=== PATIENT | male | born 1965 | race Two or more races ===

== ENCOUNTER 2025-01-31 23:38 | Emergency (ER) | payer MEDICARE, MEDICAID, SELFPAY ==
[2025-01-31 23:50] VITALS: BP 107/75; PULSE 94; RESP 19; TEMP 36.8; O2SAT 96
[2025-01-31 23:51] VITALS: BMI 25.0
--- NOTE | 2025-02-01 00:18 | XR_ITS ---
Examination: Hand, right 3 views Technique: Hand AP, oblique, lateral 3 views Date and time of exam: February 01, 2025, 0022 hours INDICATIONS: Shut car door on hand today with injury of the hand especially first digit pain FINDINGS: No acute fracture No dislocation No foreign body IMPRESSION: No acute fracture
[2025-02-01] MEDS: HYDROcodone/APAP 5/325 TABLET 1 TAB PO (01:45)
--- NOTE | 2025-02-01 03:09 | EDNOTE_ITS ---
Upper Extremity Injury RME/HPI General Chief Complaint: Hand/Wrist Problems Stated Complaint: RIGHT THUMB INJURY Time Seen by Provider: 01/31/25 23:41 Arrival date/time: 01/31/25 23:38 This is a case of 59-year-old male with no medical history came in in the emergency room due to a tongue injury history of present illness started 1 hour prior to arrival in the emergency room patient right thumb was caught by a car door sustaining a pain swelling and subungual hematoma on the right thumb patient tetanus shot is up-to-date no other injury noted Limitations: no limitations Related Data Previous Rx's ?Medication ?Instructions ?Recorded baclofen 20 mg tablet 20 mg PO QDAY #20 tabs 04/16 cephalexin 500 mg capsule 500 mg PO Q8H #30 caps 02/01 hydrocodone 5 mg-acetaminophen 325 1 tab PO Q6H PRN pa in #12 tabs 02/01/25 mg tablet mupirocin 2 % topical ointment 1 applic topical TID #2 2 grams 02/01/25 ([place]) Allergies Allergy/AdvReac Type Severity Reaction Status Date / Time No Known Allergies Allergy Verified 01/31/25 23:39 Review of Systems Review of Systems Systems Reviewed: All systems reviewed, normal except as documented Constitutional Constitutional: Reports system reviewed and no additional complaints, except as documented and Reports as per HPI Cardiovascular Cardiovascular: Reports system reviewed and no additional complaints, except as documented and Reports as per HPI Respiratory Respiratory: Reports system reviewed and no additional complaints, except as documented and Reports as per HPI Gastrointestinal Gastrointestinal: Reports system reviewed and no additional complaints, except as documented and Reports as per HPI Musculoskeletal Musculoskeletal: Reports system reviewed and no additional complaints, except as documented and Reports as per HPI Neurologic Neurologic: Reports system reviewed and no additional complaints, except as documented and Reports as per HPI Past Medical History Past Medical History CARDIAC: Negative Congestive Heart Failure RESPIRATORY: Negative Chronic Obstructive Pulmonary Disease (COPD) GENITOURINARY: Negative Renal Disease ENDOCRINE: Positive Diabetes Mellitus Type 2; Negative Diabetes Mellitus Type 1 Social History SMOKING STATUS: Never smoker ED Exam General Limitations: Present no limitations General appearance: Present alert, in no apparent distress and other (Darin is awake alert oriented not in distress nontoxic looking well-hydrated well- nourished) Head Head exam: Present atraumatic, normocephalic and normal inspection Eye Eye exam: Present normal appearance, PERRL and EOMI ENT ENT exam: Present normal exam, normal oropharynx and mucous membranes moist Neck Neck exam: Present normal inspection, full ROM and trachea midline; Absent tenderness, meningismus, lymphadenopathy or thyromegaly Chest Chest inspection: Present normal inspection and symmetric chest wall rise; Absent tenderness Respiratory Respiratory exam: Present normal lung sounds bilaterally; Absent respiratory distress, wheezes, stridor, accessory muscle use or prolonged expiratory phase Cardiovascular Cardiovascular exam: Present regular rate, normal rhythm and normal heart sounds; Absent bradycardia, tachycardia, irregular rhythm, systolic murmur or diastolic murmur Abdominal Exam Abdominal exam: Present soft and normal bowel sounds; Absent distention, tenderness, guarding, rebound, rigidity, diminished bowel sounds, hyperactive bowel sounds, hypoactive bowel sounds or organomegaly Extremities Exam Extremities exam: Present normal inspection and full ROM Expanded Upper Extremity Exam Hand exam: Present other (Noted moderate tenderness on the right thumb with swelling with subungual hematoma 100% ROM intact neurovascular intact); Absent tenderness, swelling, abrasion, laceration, skin avulsion, ecchymosis, deformity, crepitus, dislocation, erythema, amputation, nail avulsion or subungual hematoma Back Exam Back exam: Present normal inspection and full ROM Neurological Exam Neurological exam: Present alert, oriented X3, CN II-XII intact, normal gait and reflexes normal; Absent motor sensory deficit Psychiatric Psychiatric exam: Present normal affect and normal mood Skin Skin exam: Present warm, dry, intact and normal color Course Quality Measures none Orders Category Date Time Status XR hand RT 2V Stat Exams 02/01/25 00:18 Taken HYDROcodone*/APAP 5/325 [[place] 5/325] Med 02/01/25 01:12 Discontinued 1 tab PO X1 ONE Vital Signs Vital signs: Vital Signs Temperature 98.2 F 01/31/25 23:50 Pulse Rate 94 01/31/25 23:50 Respiratory Rate 19 01/31/25 23:50 Blood Pressure 107/75 01/31/25 23:50 Pulse Oximetry (%) 96 01/31/25 23:50 Oxygen Delivery Method Room Air 01/31/25 23:50 Oxygen saturation is 96% on room air PROCEDURES: Nail Trephination Time out: Yes Location (finger): right Location (toes): first digit Sterile prep: betadine and chlorhexidine Method of drainage: nail cautery Procedure successful: Yes Patient tolerated procedure: well Complications: other (none) Extremity Injury MDM Narrative MDM Narrative:: This is a case of 59-year-old male with no medical history came in in the emergency room due to a tongue injury history of present illness started 1 hour prior to arrival in the emergency room patient right thumb was caught by a car door sustaining a pain swelling and subungual hematoma on the right thumb patient tetanus shot is up-to-date no other injury noted physical examination patient is awake alert oriented not in any distress nontoxic looking patient noted to have moderate tenderness and swelling on the right thumb with subungual hematoma 100% ROM intact neurovascular is intact x-ray showed a distal tuft fracture on the right thumb trephination was performed patient tolerated well neurovascular intact pain was resolved after the procedure patient was also given [place] right thumb was cleaned with alcohol apply triple antibiotic cover with nonadherent gauze and applied a finger splint patient tolerated well sonny rovascular intact patient was advised to follow-up with PCP in 2 days for reevaluation and to be referred to Ortho for thumb fracture for any recurrence persistent worsening symptoms or emergent concern return precaution in the ER was advised Patient was discharged with comfortable condition walking with stable gait. Patient verbalized no further complains explained diagnosis and answered patient question. Patient is comfortable with the proposed management plan including the need to follow up with his/her primary care physician and any specialist if applicable Discussed patient for any urgent condition or worsening sx, He/She needed to go to emergency room immediately or call 911. Patient acknowledge the responsibility to follow up as instructed and to monitor her/his symptoms. For any persistence of the symptoms for more than 3-5 days return precaution advised. Discussed the result of the test and was given printed discharge instruction Patient data External records reviewed:: [facility] previous records Clinical information provided by:: patient Social determinants that could affect healthcare access:: none Patient has the following chronic illnesses:: None How is presenting disease/condition affected by chronic disease/condition?: no chronic disease Evaluation data The following diagnostics were reviewed and interpreted by me:: radiology exam(s) Lab and/or radiology exams considered but not ordered:: Reviewed Interpretation Summary: Reviewed Medications / Prescriptions Medications or Prescriptions considered but not ordered:: Given Medication administrations:: Medication Administration History Discontinued Medications Hydrocodone Bitart/Acetaminophen (Hydrocodone/[place] 5/325 Tablet) 1 tab PO X1 ONE Stop: 02/01/25 01:13 Last Admin: 02/01/25 01:45 Dose: 1 tab Documented By: RAFAELA Given Consultations Consultation(s) initiated? (list below): No Diagnosis Upper Extremity Injury Differential Diagnosis: finger sprain, dislocation of finger and other Most likely diagnosis given after review of the tests above:: Distal tuft fracture subungual hematoma Admission Indicated Admission indicated?: not indicated Explain why admission is indicated or not indicated:: Not indicated Admission Request Was there a request for admission?: No Disposition Plan Disposition Plan: Discharge Discharge Attestation Discharge Attestation: The patient and all family members were given an opportunity to ask questions and understood the discharge instructions. Discharge instructions specifically effects, indications for sooner follow up or return to the emergency department, and the expected course of current diagnosis. Patient condition: Stable Discharge Plan Plan Patient Disposition: HOME (Self Care) Patient condition on transfer: Stable Prescriptions/Referrals Prescriptions/Med Rec: New hydrocodone-acetaminophen 5-325 mg tablet 1 tab PO Q6H MDD max 4 tabs per day PRN (Reason: pain) Qty: 12 0RF cephalexin 500 mg capsule 500 mg PO Q8H Qty: 30 0RF mupirocin [[place]] 2 % ointment 1 applic topical TID Qty: 22 0RF No Action baclofen 20 mg tablet 20 mg PO QDAY Qty: 20 0RF Problem List Clinical Impression: Subungual hematoma, Closed fracture of tuft of distal phalanx of finger Patient/Caregiver Discharge Instructions Education Materials: Subungual Hematoma, ED Fracture, Finger, Closed, ED Subungual Hematoma, ED RICE Additional Instructions: Follow-up with your primary care physician in 2 days for evaluation and to be referred to orthopedic surgeon for further evaluation and treatment of distal tuft fracture of the right thumb worsening symptoms or any emergent concerns such as redness swelling discharge from the right thumb pain fever chills return to the emergency room immediately or call 911 ice pack every 2 hours for 20 minutes for 24 hours then alternate with warm compress elevate to decrease swelling keep the finger splint in place until cleared by primary care physician Print Language: Burmese Stand Alone Forms: Mleanie Award Info., Patient Portal Info Letter PA/TRINITY Supervising Physician MAISHA/TRINITY Supervising Physician: Dr. Danielson
== END 2025-02-01 01:55 | disposition home or self-care (01) ==
LOC: SERX 02-01 01:57
PROVIDERS: Emergency Provider Emergency Medicine; PCP Physician Assistant
DX: S60.011A Contusion of right thumb without damage to nail, initial encounter (principal); W22.8XXA Striking against or struck by other objects, initial encounter
CPT/HCPCS: 11740; 73120; 99282; A9270